=== PATIENT | male | born 1965 | race Caucasian/White ===

== ENCOUNTER 2016-08-30 14:50 | Emergency (ER) | payer OTHER ==
[~2016-08-30] VITALS: Ht 167.6 cm; Wt 84.8 kg
[~2016-08-30 14:50] MED LIST: ASPIRIN ADULT L81 MG PO; ASPIRIN CHILDRE81 MG; LISINOPRIL10 MG PO; METFORMIN1000 MG PO; SIMVASTATIN20 MG PO; ZOLPIDEM TARTRAT5 MG PO
--- NOTE | 2016-08-30 15:26 | ED GENERAL ADULT ---
History of Present Illness General Chief Complaint: ETOH/Drug Related Complaint Stated Complaint: DETOX AND VOMITING Source: patient, family, old records, EMS Exam Limitations: intoxication Vital Signs & Intake/Output Vital Signs & Intake/Output Vital Signs Date Time Temp Pulse Resp B/P Pulse O2 O2 Flow FiO2 Ox Delivery Rate 08/30 2201 98.2 80 16 136/74 / 2200 98.2 80 16 136/74 / 1915 98.4 90 16 134/80 04/ 1825 98.4 90 16 134/80 / 1708 Room Air 08/30 1455 97.1 98 18 121/89 100 Room Air Allergies Coded Allergies: NO KNOWN ALLERGIES (12/14/15) Reconcile Medications No Known Home Medications Triage Note: PT TO ED FOR ABD PAIN AND VOMITING SINCE SATURDAY, PT INTOXICATED IN TRIAGE, 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 Triage Nurses Notes Reviewed? yes HPI: Patient brought in by ambulance after his daughter called because of alcohol intoxication, abdominal pain and nausea or vomiting. Patient states that he has been vomiting for the past 2 days constantly. Patient is unable to keep anything except alcohol down. Patient and daughter deny any blood or coffee ground material in the vomitus. There are no fevers or chills. Patient cannot describe the pain nor localize the pain anywhere to his abdomen. Patient is intoxicated and is unable to provide further history. (ELIANE DICKERSON,KENNY Vazquez) Past History Travel History Traveled to [place] past 21 day No Medical History Any Pertinent Medical History? 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 No (ELIANE DICKERSON,KENNY Vazquez) Review of Systems Review of Systems Constitutional: Reports: no symptoms. EENTM: Reports: no symptoms. Respiratory: Reports: no symptoms. Cardiovascular: Reports: no symptoms. GI: Reports: see HPI, abdominal pain, nausea, vomiting. Genitourinary: Reports: no symptoms. Musculoskeletal: Reports: no symptoms. Skin: Reports: no symptoms. Neurological/Psychological: Reports: no symptoms. Hematologic/Endocrine: Reports: no symptoms. Immunologic/Allergic: Reports: no symptoms. All Other Systems: Reviewed and Negative (ELIANE DICKERSON,KENNY Vazquez) Physical Exam Physical Exam General Appearance: well developed/nourished, alert, awake, moderate distress Head: atraumatic, normal appearance Eyes: Bilateral: PERRL, EOMI. Ears, Nose, Throat: normal pharynx, normal ENT inspection Neck: normal inspection, supple, full range of motion Respiratory: normal breath sounds, chest non-tender, no respiratory distress, lungs clear Cardiovascular: regular rate/rhythm, normal peripheral pulses Gastrointestinal: normal bowel sounds, soft, non-tender, no organomegaly Back: normal inspection, normal range of motion Extremities: normal inspection, normal capillary refill, no edema Neurologic/Psych: no motor/sensory deficits, awake, alert Skin: intact, normal color, warm/dry Lymphatic: no anterior cervical audie Core Measures ACS in differential dx? No CVA/TIA Diagnosis: No Severe Sepsis Present: No Septic Shock Present: No (ELIANE DICKERSON,KENNY Vazquez) Progress Differential Diagnoses I considered the following diagnoses in my evaluation of the patient: [Alcohol intoxication, alcoholic gastritis, upper GI bleed, pancreatitis, dehydration] Plan of Care: Orders Procedure Date/time Status Regular Diet 08/31 B Active Continuous Observation Monitor 08/31 0700 Active Continuous Observation Monitor 08/31 0300 Active Continuous Observation Monitor 08/30 2300 Active CIWA 08/30 1906 Active Continuous Observation Monitor 08/30 1900 Active URINE DRUG SCREEN FOR ER ONLY 08/30 1655 Complete Continuous Observation Monitor 08/30 1612 Active Add-on Test (ER Only) 08/30 1525 Active LIPASE 08/30 1519 Complete ETHANOL 08/30 1519 Complete COMPREHENSIVE METABOLIC PANEL 08/30 1519 Complete CBC WITHOUT DIFFERENTIAL 08/30 1519 Complete AMYLASE 08/30 1519 Complete Laboratory Tests 08/30/16 1653: Urine Opiates Screen < 100.00, Methadone Screen < 40, Barbiturate Screen < 60, Ur Phencyclidine Scrn < 6.00, Amphetamines Screen < 100, U Benzodiazepines Scrn < 85, Urine Cocaine Screen < 50, Urine Cannabis Screen < 5.00 08/30/16 1626: Anion Gap 13, Estimated GFR > 60, BUN/Creatinine Ratio 23.8, Glucose 179 H, Calcium 9.1, Total Bilirubin 0.4, AST 29, ALT 41, Alkaline Phosphatase 85, Total Protein 7.2, Albumin 3.9, Globulin 3.3, Albumin/Globulin Ratio 1.2, Amylase 54, Lipase 119, Serum Alcohol 269.0 08/30/16 1555: CBC w Diff NO MAN DIFF REQ, RBC 5.44, MCV 89.7, MCH 30.9, RDW 12.6, MPV 7.7, Gran % 51.9, Lymphocytes % 40.5, Monocytes % 6.5, Eosinophils % 0.3, Basophils % 0.8, Absolute Granulocytes 4.6, Absolute Lymphocytes 3.6 H, Absolute Monocytes 0.6, Absolute Eosinophils 0, Absolute Basophils 0.1, PUBS MCHC 34.5 Initial ED EKG: none Hand-Off Endorsed To: HOSEA SHERIFF MD Endorsed Time: 1899 Pending: other (SOBREITY) (KENNY DEL RIO MD) Differential Diagnoses I considered the following diagnoses in my evaluation of the patient: Comments: Declines detox (HOSEA SHERIFF MD) Departure Departure Condition: Stable Referrals: GAB VALERIO MD (PCP/Family) (KENNY DEL RIO MD) Departure Time of Disposition: 2338 Disposition: HOME OR SELF CARE Clinical Impression Primary Impression: Alcohol intoxication Qualifiers: Complication of substance-induced condition: with delirium Qualified Code: F10.121 - Alcohol abuse with intoxication delirium Departure Forms: General Discharge Information Prescriptions: Current Visit Scripts No Known Home Medications (HOSEA SHERIFF MD) Critical Care Note Critical Care Note Critical Care Time: non-applicable (KENNY DEL RIO MD)
[2016-08-30 16:04] LABS: ABSOLUTE BASOPHIL COUNT 0.1 /CUMM (0.0-0.2); ABSOLUTE EOSINOPHIL COUNT 0 /CUMM (0.0-0.7); ABSOLUTE GRANULOCYTE CT 4.6 /CUMM (1.4-6.5); ABSOLUTE LYMPH COUNT 3.6 /CUMM (1.2-3.4); ABSOLUTE MONOCYTE COUNT 0.6 /CUMM (0.10-0.60); BASOPHIL % 0.8 % (0.0-2.0); EOSINOPHIL % 0.3 % (0-5); GRANULOCYTE % 51.9 % (42.2-75.2); HEMATOCRIT 48.8 % (42-52); MEAN CORPUSCULAR HGB 30.9 PG (27.0-31.0); MEAN CORPUSCULAR HGB CONC 34.5 G/DL (33.0-37.0); MEAN CORPUSCULAR VOLUME 89.7 FL (80.0-94.0); MEAN PLATELET VOLUME 7.7 FL (7.4-10.4); PLATELET COUNT 309 /CUMM (130-400); RBC DISTRIBUTION WIDTH 12.6 % (11.5-14.5); RED BLOOD CELL CT 5.44 /CUMM (4.70-6.10); WHITE BLOOD CELL COUNT 8.8 /CUMM (4.8-10.8)
[2016-08-30 22:02] VITALS: BP 136/74
== END 2016-08-30 23:46 ==
LOC: ERH 14:50
PROVIDERS: Emergency Medicine
DX: F10.129 Alcohol abuse with intoxication, unspecified (principal); R11.10 Vomiting, unspecified; I10 Essential (primary) hypertension; E11.9 Type 2 diabetes mellitus without complications; Z72.0 Tobacco use
CPT/HCPCS: 80307; 96372; G0480; J1200; J1630

== ENCOUNTER 2016-10-15 19:18 | Emergency (ER) | payer OTHER ==
--- NOTE | 2016-10-15 19:23 | ED GENERAL ADULT ---
History of Present Illness General Chief Complaint: ETOH/Drug Related Complaint Stated Complaint: REQUESTING ETOH DETOX Source: patient, family, old records Exam Limitations: intoxication Vital Signs & Intake/Output Vital Signs & Intake/Output Vital Signs Date Time Temp Pulse Resp B/P B/P Pulse O2 O2 Flow FiO2 Mean Ox Delivery Rate 10/15 Room Air Allergies Coded Allergies: NO KNOWN ALLERGIES (12/14/15) Reconcile Medications No Known Home Medications Triage Nurses Notes Reviewed? yes HPI: Patient brought in by his family for alcohol intoxication. His family wants to get detox but patient is adamantly refusing detox. Family is advised that we will be glad to help him if he is not to have helped. Patient denies any suicidal or homicidal ideations. Patient is refusing to stay for help. Patient wants to go home. Past History Travel History Traveled to [facility] past 21 day No Medical History Any Pertinent Medical History? 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 No Review of Systems Review of Systems Constitutional: Reports: no symptoms. Respiratory: Reports: no symptoms. Cardiovascular: Reports: no symptoms. GI: Reports: no symptoms. Musculoskeletal: Reports: no symptoms. Neurological/Psychological: Reports: no symptoms. Immunologic/Allergic: Reports: no symptoms. Physical Exam Physical Exam General Appearance: well developed/nourished, awake, intoxicated Head: atraumatic, normal appearance Eyes: Bilateral: PERRL, EOMI, other (SLUGGISH). Neck: normal inspection, supple Respiratory: normal breath sounds, chest non-tender, no respiratory distress, lungs clear Cardiovascular: regular rate/rhythm, normal peripheral pulses Gastrointestinal: normal bowel sounds, soft, non-tender, no organomegaly Neurologic/Psych: no motor/sensory deficits, awake, normal gait, normal mood/ affect Core Measures ACS in differential dx? No CVA/TIA Diagnosis: No Severe Sepsis Present: No Septic Shock Present: No Progress Differential Diagnoses I considered the following diagnoses in my evaluation of the patient: [Alcohol intoxication] Plan of Care: Orders Procedure Date/time Status CIWA 10/15 1922 Active Current Medications Sig/Ankita Start time Last Medication Dose Stop Time Status Admin Diphenhydramine HCl 50 MG ONCE ONE 10/15 1944 CAN (Benadryl) 10/15 1945 Haloperidol 5 MG ONCE ONE 10/15 1944 CAN (Haldol) 10/15 1945 Lorazepam 2 MG ONCE ONE 10/15 1944 CAN (Ativan) 10/15 1945 Laboratory Tests 10/15/161922: Serum Alcohol Cancelled 10/15/161922: CBC w Diff Cancelled, WBC Cancelled, RBC Cancelled, Hgb Cancelled, Hct Cancelled , MCV Cancelled, MCH Cancelled, RDW Cancelled, Plt Count Cancelled, MPV Cancelled, PUBS MCHC Cancelled, Methadone Screen Cancelled, Barbiturate Screen Cancelled, Ur Phencyclidine Scrn Cancelled, Amphetamines Screen Cancelled, U Benzodiazepines Scrn Cancelled, Urine Cocaine Screen Cancelled, Urine Cannabis Screen Cancelled, Urine Color Cancelled, Urine Clarity Cancelled, Urine pH Cancelled, Ur Specific [place] Cancelled, Urine Protein Cancelled, Urine Ketones Cancelled, Urine Nitrite Cancelled, Urine Bilirubin Cancelled, Urine Urobilinogen Cancelled, Ur Leukocyte Esterase Cancelled, Ur Microscopic Cancelled, Urine Hemoglobin Cancelled, Urine Glucose Cancelled Initial ED EKG: none Comments: The patient attempted to walk out of the emergency department. Patient was returned to his room. Patient again attempted to walk out. Patient was just about to be restrained and medicated with family state that they will need to just take him home since he does not want help at this time. Departure Departure Disposition: HOME OR SELF CARE Condition: Stable Clinical Impression Primary Impression: Alcohol intoxication Referrals: TEODORO DICKERSON,GAB Doe (PCP/Family) Departure Forms: Customer Survey General Discharge Information Prescriptions: Current Visit Scripts No Known Home Medications Critical Care Note Critical Care Note Critical Care Time: non-applicable
== END 2016-10-15 20:30 ==
LOC: ERH 19:18
DX: F10.129 Alcohol abuse with intoxication, unspecified (principal)
CPT/HCPCS: 80307; G0480

== ENCOUNTER 2018-01-31 16:42 | Inpatient (IN) | payer OTHER ==
[~2018-01-31] VITALS: Ht 167.6 cm; Wt 82.2 kg
--- NOTE | 2018-01-31 18:03 | ED PSYCHIATRIC COMPLAINT ---
History of Present Illness General Chief Complaint: Psychiatric Related Complaint Stated Complaint: +SI COMBATIVE Source: old records, EMS Exam Limitations: intoxication, language barrier Vital Signs & Intake/Output Vital Signs & Intake/Output Vital Signs Date Time Temp Pulse Resp B/P B/P Pulse O2 O2 Flow FiO2 Mean Ox Delivery Rate 09/08 1503 98.3 90 141/93 09/08 1423 97.7 83 20 144/101 97 09/08 1410 97.7 83 18 144/101 09/08 1310 98.4 72 18 128/94 98 09/08 1210 98.7 87 18 125/91 09/08 1115 98.7 87 18 125/91 99 09/08 1015 97.9 90 18 108/70 09/08 1014 97.9 90 18 108/70 98 Room Air 09/08 0810 98.7 88 18 116/79 09/08 0810 98.7 94 18 116/79 95 Room Air 09/08 0617 98.1 78 20 100/72 09/08 0614 98.1 78 20 100/72 96 Room Air 09/08 0504 97.5 09/08 0500 74 18 140/103 09/08 0500 74 18 140/103 96 Room Air 09/08 0300 97.9 87 16 120/89 09/08 0300 97.9 87 18 120/89 97 Nasal 2.0L Cannula 09/08 0100 98.0 79 18 134/98 09/08 0100 98.0 79 18 134/98 97 Nasal 2.0L Cannula 09/07 2300 97.5 86 20 125/90 09/07 2300 97.5 86 20 125/90 96 Nasal 2.0L Cannula /07 2247 84 20 190/87 96 Room Air 09/07 2130 98.0 102 18 180/96 09/07 2106 98.0 86 18 170/96 96 Room Air 09/07 1957 97.8 84 18 144/90 96 Room Air 09/07 1947 78 20 144/92 97 Room Air 09/07 1907 98.0 86 18 132/90 96 Room Air 09/07 1842 77 18 132/78 96 Room Air 09/07 1819 97.0 84 18 124/78 94 Room Air 09/07 1745 78 18 122/80 93 Room Air 09/07 1701 86 16 120/69 92 Room Air ED Intake and Output 09/08 0000 01/31 1200 Intake Total 330 Output Total 400 Balance -70 Intake, Oral 330 Output, Urine 400 Allergies Coded Allergies: NO KNOWN ALLERGIES (12/14/15) Reconcile Medications No Known Home Medications Triage Note: PER EMS REPORT PT WAS FOUND INTOXICATED AT HOME BY HIS DAUGHTER. PT WAS AGITATED AND THREATENING TO KILL HIMSELF WITH A KITCHEN KNIFE. PER EMS PT ALSO TOOK AN UNKNOWN AMOUNT OF AMBIEN. PT WAS AGITATED FOR EMS AND WAS ATTEMPTING TO EXPOSE HIMSELF IN THE AMBULANCE. ON ARRIVAL PT IS DROWSY BUT AROUSABLE TO VERBAL AND TACTILE STIMULI. SECURITY AT BEDSIDE. PT PLACED ON CARDIC MONITOR AND SPO2 MONITORING. Triage Nurses Notes Reviewed? yes Onset: Abrupt Duration: day(s): (1), constant, continues in ED, getting worse Timing: recent history Severity: moderate, severe Associated Symptoms: anxiety, ingestion, suicidal ideation HPI: 52-year-old male history of hypertension diabetes alcohol intoxication brought in by ambulance on a police paper for evaluation of alcohol and tox patient and suicidal ideation. Patient is now feeling intoxicated. He is largely Czech speaking history is limited. According to the police paper patient had drank heavily today and took 4 10 mg Ambien tablets. He had threatened to kill himself with a kitchen knife or try to hang himself. Patient has been seen with similar symptoms in the past. Patient is unable to answer any questions secondary to intoxication and clinical condition. (Marcellus Dorado) Past History Travel History Traveled to [place] past 21 day No Medical History Any Pertinent Medical History? 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 No (Marcellus Dorado) Review of Systems Review of Systems Constitutional: Reports: no symptoms. EENTM: Reports: no symptoms. Respiratory: Reports: no symptoms. Cardiovascular: Reports: no symptoms. GI: Reports: no symptoms. Genitourinary: Reports: no symptoms. Musculoskeletal: Reports: no symptoms. Skin: Reports: no symptoms. Neurological/Psychological: Reports: see HPI, anxiety, depressed. Hematologic/Endocrine: Reports: no symptoms. Immunologic/Allergic: Reports: no symptoms. All Other Systems: Reviewed and Negative (Marcellus Dorado) Physical Exam Physical Exam General Appearance: well developed/nourished, alert, awake, anxious, lethargic, moderate distress, intoxicated Head: atraumatic, normal appearance Eyes: Bilateral: normal appearance, PERRL (sluggish), EOMI. Ears, Nose, Throat: normal pharynx, normal ENT inspection, hearing grossly normal Neck: normal inspection, supple, full range of motion Respiratory: normal breath sounds, chest non-tender, no respiratory distress, lungs clear Cardiovascular: regular rate/rhythm, normal peripheral pulses Gastrointestinal: soft, non-tender Extremities: normal range of motion Neurological/Psychiatric: no motor/sensory deficits, awake, agitated, anxious Appearance/Memory/Insight: disheveled, impaired insight Behavoir/Eye Contact/Speech: belligerent, uncooperative, compulsive, refused to answer, threatening eye contact Thoughts/Hallucinations: incoherent Skin: intact, normal color, warm/dry Comments: Patient is intoxicated and belligerent. He is refusing answer questions. He is threatening staff attempting to leave. Kicking siderails he is a danger to himself and others. SAD PERSONS SAD PERSONS Response Value Male Sex? yes 1 Age <19 or >45 years? yes 1 Depression/Hopelessness? yes 2 Previous Attempts/Psych Care yes 1 Excessive Ethanol/Drug Use? yes 1 Rational Thinking Loss? yes 2 Organized/Serious Attempt yes 2 Social Support? has support 0 Total 10 SAD PERSONS Done? yes (Marcellus Dorado) Progress Differential Diagnosis: dementia, drug intoxication, drug overdose, drug withdrawal, electrolyte abnormality Plan of Care: Orders Procedure Date/time Status Consistent Carbohydrate 3 02/01 D Active Regular Diet 02/01 B Complete Continuous Observation Monitor 02/01 1900 Complete Vital Signs 02/01 1503 Complete Inpt Psych Teach/Educate 02/01 1503 Active Nutritional Intake, Monitor 02/01 1503 Active Inpt Psych Auricular Acupunctu 02/01 1503 Active Continuous Observation Monitor 02/01 1500 Complete Lab Add-on Test 02/01 1216 Active Pathway - chart 02/01 1215 Active Lab Add-on Test 02/01 1210 Active Patient Data - inpatient psych 02/01 1209 Active Admit to inpatient psych 02/01 1209 Active Admit to inpatient psych 02/01 1147 Active Continuous Observation Monitor 02/01 1100 Complete Continuous Observation Monitor 02/01 0700 Complete Restraint- Discontinue 02/01 0430 Active Restraint- Behavioral (Renew) 02/01 0338 Active Vital Signs 02/01 UNK Active Nursing Misc 02/01 UNK Active CIWA 02/01 UNK Complete Alternative Nursing Therapy 02/01 UNK Active Activity/Ambulation 02/01 UNK Complete Restraint- Behavioral (Renew) 01/31 2340 Active Restraint- Behavioral (Renew) 01/31 2309 Active Bayard Coma Scale 01/31 2133 Complete Straight Cath 01/31 2045 Complete CIWA 01/31 2013 Active Restraint- Behavioral (Renew) 02/01 2000 Active Intake & Output 01/31 1816 Complete TSH REFLEX 01/31 1720 Complete LIPID PANEL 01/31 1720 Complete GLYCOSYLATED HGB 01/31 1720 Complete DIRECT LDL 01/31 1720 Complete Restraint- Behavioral (Order) 01/31 1705 Complete ACETOMINOPHEN 01/31 1704 Complete TROPONIN LEVEL 01/31 1704 Complete SALICYLATE 01/31 1704 Complete EKG 01/31 1704 Active Continuous Observation Monitor 01/31 1658 Complete URINE DRUG SCREEN FOR ER ONLY 01/31 1658 Complete URINALYSIS 01/31 1658 Complete ETHANOL 01/31 1658 Complete COMPREHENSIVE METABOLIC PANEL 01/31 1658 Complete CBC WITHOUT DIFFERENTIAL 01/31 1658 Complete ED CRISIS PSYCH CONSULT 01/31 1658 Active Current Medications Sig/Ankita Start time Last Medication Dose Stop Time Status Admin Lorazepam 0.5 MG ONCE 02/06 0000 AC (Ativan) 02/06 0001 Lorazepam 0.5 MG Q6H 02/05 0000 AC (Ativan) 02/05 180 Lorazepam 0.5 MG ONCE ONE 02/04 1800 AC (Ativan) 02/04 1801 Lorazepam 1 MG Q6H 02/04 0000 AC (Ativan) 02/04 1201 Lorazepam 1.5 MG Q12H 02/03 0600 AC (Ativan) 02/03 1801 Lorazepam 1 MG Q12H 02/03 0000 AC (Ativan) 02/03 1201 Lorazepam 1.5 MG Q6 02/02 0600 AC (Ativan) 02/02 1801 Acetaminophen 650 MG Q6P PRN 02/01 1215 AC (Tylenol) Al Hydroxide/Mg 30 ML Q4-6 PRN PRN 02/01 1215 AC Hydroxide (Maalox Plus) Benztropine Mesylate 1 MG Q6P PRN 02/01 1215 AC (Cogentin 1 MG Tablet) Benztropine Mesylate 1 MG Q6P PRN 02/01 1215 AC (Cogentin) Gabapentin 300 MG Q6P PRN 02/01 1215 AC (Neurontin) Haloperidol 5 MG Q6P PRN 02/01 1215 AC (Haldol) Haloperidol 5 MG Q6P PRN 02/01 1215 AC (Haldol) Lorazepam 2 MG Q6P PRN 02/01 1215 AC (Ativan) Lorazepam 2 MG Q6 02/01 1215 AC (Ativan) 02/02 0001 Lorazepam 2 MG Q2P PRN 02/01 1215 AC (Ativan) Lorazepam 1 MG Q2P PRN 02/01 1215 AC (Ativan) Magnesium Hydroxide 30 ML AT BEDTIME PRN 02/01 1215 AC (Milk Of Magnesia) Nicotine 2 MG Q2P PRN 02/01 1215 AC (Nicotine) Trazodone HCl 50 MG AT BEDTIME NEED.. 02/01 1215 AC (Desyrel) Folic Acid 1 MG DAILY 02/01 1214 AC (Folic Acid) 02/03 901 Multivitamins 1 TAB DAILY 02/01 1214 AC (Theragran Vitamins) Thiamine HCl 100 MG DAILY 02/01 1214 AC (Vitamin B1) 02/03 09 Laboratory Tests 01/31/180: Urine Opiates Screen < 100, Methadone Screen 43, Barbiturate Screen < 60, Ur Phencyclidine Scrn < 6.00, Amphetamines Screen < 100, U Benzodiazepines Scrn < 85, Urine Cocaine Screen < 50, Urine Cannabis Screen < 5.00, Urine Color STRAW, Urine Clarity CLEAR, Urine pH 6.0, Ur Specific [place] 1.010, Urine Protein NEG, Urine Ketones NEG, Urine Nitrite NEG, Urine Bilirubin NEG, Urine Urobilinogen 0.2, Ur Leukocyte Esterase NEG, Ur Microscopic EXAM NOT REQUIRED, Urine Hemoglobin NEG, Urine Glucose >=1000 H 01/31/18 1720: Troponin I < 0.01, Serum Alcohol 226.0 01/31/18 1720: Anion Gap 15, Estimated GFR > 60, BUN/Creatinine Ratio 21.7, Glucose 289 H, Hemoglobin A1c 9.7 H, Calcium 9.7, Total Bilirubin 0.5, AST 26, ALT 33, Alkaline Phosphatase 94, Total Protein 7.6, Albumin 4.4, Globulin 3.2, Albumin/ Globulin Ratio 1.4, Triglycerides 521 H, Cholesterol 212 H, LDL Cholesterol Direct 91.28, LDL Cholesterol, Calc ND, HDL Cholesterol 50, Cholesterol/HDL Ratio 4.2, TSH &T3 &Free T4 Intrp 2.000, CBC w Diff NO MAN DIFF REQ, RBC 5.53, MCV 88.6, MCH 30.6, MCHC 34.5, RDW 12.9, MPV 7.5, Gran % 52.8, Lymphocytes % 37.2, Monocytes % 8.7, Eosinophils % 0.8, Basophils % 0.5, Absolute Granulocytes 4.3, Absolute Lymphocytes 3.0, Absolute Monocytes 0.7 H, Absolute Eosinophils 0.1, Absolute Basophils 0, Salicylates < 1.0, Acetaminophen < 10.0 L Patient arrives heavily intoxicated on a police paper for suicidal ideation. He drank a large amount of alcohol and took 4 mgram Ambien tablets. He threatened to kill himself with a knife or hang himself. Patient is a danger to himself and others currently. He is belligerent and intoxicated he is threatening staff. He is attempting to leave attempting to get out of bed. Patient is placed in 4 point restraints he was medicated with Haldol Benadryl Ativan. Patient continues to be very aggressive and agitated. He is in restraints but is still kicking and thrashing. He was given another 2 mg of IV Ativan. Patient is now resting comfortably after several hours. His vital signs are stable. Blood work is unremarkable. Does have an elevated alcohol level is 300. Patient will be held over in the emergency department for crisis evaluation. 2 of his 4 restraints were removed. We'll continue to monitor. Patient signout to Dr. Pineda pending crisis Diagnostic Imaging: Viewed by Me: Radiology Read. Discussed w/RAD: Radiology Read. CXR Impression: PATIENT: LANCE LYLES PRESENT AGE : 52 PATIENT ACCOUNT NO: [id number] : 65 LOCATION: [facility] ORDERING PHYSICIAN: Marcellus COLE SERVICE DATE: 01/31/18 EXAM TYPE: RAD - XRY- PORTABLE CHEST XRAY EXAMINATION: XR PORTABLE CHEST CLINICAL INFORMATION: Hypoxia. COMPARISON: 12/13/2014 TECHNIQUE: Portable frontal view of the chest was obtained. FINDINGS: No significant abnormality is noted involving the heart, lungs, mediastinum, bony thorax or soft tissues. IMPRESSION: Limited extra chest. Minimal bibasilar airspace disease likely minor atelectasis. Minimal early infiltrate not excluded. Consider follow-up PA and lateral chest with better inspiratory effort. DICTATED BY: Jose Briseno MD DATE/TIME DICTATED:1818 SEAL EXTRUSION OPERATOR:DEEPIKA DATE/TIME TRANSCRIBED:01/31/181818 CONFIDENTIAL, DO NOT COPY WITHOUT APPROPRIATE AUTHORIZATION. Initial ED EKG: normal sinus rhythm, QTC 441, sinus rhythm [facility] Hand-Off Endorsed To: Macario Pineda MD Endorsed Time: 99 Pending: other (crisis) (Marcellus Dorado) Departure Departure Disposition: STILL A PATIENT Condition: Stable Clinical Impression Primary Impression: Suicidal ideation Secondary Impressions: Alcohol intoxication delirium Referrals: Imelda DICKERSON,Jagdeep Doe (PCP/Family) Departure Forms: Customer Survey General Discharge Information Prescriptions: Current Visit Scripts No Known Home Medications (Marcellus Dorado) Departure Comments pt signed out to dr. martinez, 02/01/18, 7am. PA/ENTRY DRIVER OPERATOR Co-Sign Statement Statement: ED Attending supervision documentation- [x] I saw and evaluated the patient. I have also reviewed all the pertinent lab results and diagnostic results. I agree with the findings and the plan of care as documented in the PA's/ENTRY DRIVER OPERATOR's documentation. [] I have reviewed the ED Record and agree with the PA's/ENTRY DRIVER OPERATOR's documentation. [] Additions or exceptions (if any) to the PAs/ENTRY DRIVER OPERATOR's note and plan are summarized below: [] (Miriam DICKERSON,Macario Gustafson) Psych Admission Note Psychiatric Admission: I have seen and evaluated LANCE LYLES. I have also reviewed all the pertinent lab results and diagnostic results. LANCE LYLES will be admitted to our inpatient Psychiatric unit for treatment and care. (Charlie DICKERSON,Brayan)
[2018-01-31 18:07] LABS: ABSOLUTE BASOPHIL COUNT 0 /CUMM (0.0-0.2); ABSOLUTE EOSINOPHIL COUNT 0.1 /CUMM (0.0-0.7); ABSOLUTE GRANULOCYTE CT 4.3 /CUMM (1.4-6.5); ABSOLUTE MONOCYTE COUNT 0.7 /CUMM (0.10-0.60); BASOPHIL % 0.5 % (0.0-2.0); EOSINOPHIL % 0.8 % (0-5); GRANULOCYTE % 52.8 % (42.2-75.2); MEAN CORPUSCULAR HGB 30.6 PG (27.0-31.0); MEAN CORPUSCULAR HGB CONC 34.5 G/DL (33.0-37.0); MEAN CORPUSCULAR VOLUME 88.6 FL (80.0-94.0); MEAN PLATELET VOLUME 7.5 FL (7.4-10.4); PLATELET COUNT 307 /CUMM (130-400); RBC DISTRIBUTION WIDTH 12.9 % (11.5-14.5); RED BLOOD CELL CT 5.53 /CUMM (4.70-6.10); WHITE BLOOD CELL COUNT 8.1 /CUMM (4.8-10.8)
--- NOTE | 2018-01-31 18:23 | RADIOLOGY REPORT ---
EXAMINATION: XR PORTABLE CHEST CLINICAL INFORMATION: Hypoxia. COMPARISON: 12/13/2014 TECHNIQUE: Portable frontal view of the chest was obtained. FINDINGS: No significant abnormality is noted involving the heart, lungs, mediastinum, bony thorax or soft tissues. IMPRESSION: Limited extra chest. Minimal bibasilar airspace disease likely minor atelectasis. Minimal early infiltrate not excluded. Consider follow-up PA and lateral chest with better inspiratory effort.
[2018-01-31 21:30] VITALS: BP 180/96
[2018-01-31 23:00] VITALS: BP 125/90
[2018-02-01] VITALS (12 sets, daily range): BP systolic 100–144; BP diastolic 70–103
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
[2018-02-01] MEDS ORDERED: GLUCOPHAGE1000 M1 PO (17:47)
[2018-02-01] MEDS ORDERED: AMBIEN10 M1 PO (17:50)
--- NOTE | 2018-02-01 20:31 | History & Physical ---
General Information and HPI MD Statement: I have seen and personally examined LANCE LYLES and documented this H&P. The patient is a 52 year old M who presented with a patient stated chief complaint of depression and expressing of "kill myself". Source of Information: patient Exam Limitations: no limitations History of Present Illness: Patient is a 52 years old male with history of hypertension, diabetes is admitted to inpatient psychiatry for depression, suicidal ideation. Patient says that he was upset with the family issues, was tired and was feeling somewhat depressed, expressed that "maybe I should kill myself", his daughter called the EMS. Patient says that he was taking metformin in the past but not taking for a long time. Does not check sugars at home. Mrs. he has mild blood pressure problem but not on any medications. He has not seen his PCP for more than 2-1/2 years. Patient also drinks alcohol, he was sober for 8 weeks then he started drinking for a week then he was sober for 1 week and again he started drinking 3 days ago. He drinks beer. Denies any withdrawal symptoms. 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 spouse Services at Home: None Smoking Status: Never Smoked ETOH Use: alcoholic Functional Ability ADLs Independent: dressing, eating, toileting, bathing. Ambulation: independent IADLs Independent: shopping, housework, finances, food prep, telephone, transportation , medication admin. Review of Systems Review of Systems Constitutional: Denies: no symptoms. EENTM: Denies: no symptoms. Cardiovascular: Denies: chest pain, orthopena, palpitations. Respiratory: Denies: no symptoms, cough. GI: Denies: no symptoms. Genitourinary: Denies: no symptoms. Musculoskeletal: Denies: no symptoms. Skin: Denies: no symptoms. Neurological/Psychological: Denies: no symptoms. Hematologic/Endocrine: Denies: no symptoms. Exam & Diagnostic Data Last 24 Hrs of Vital Signs/I&O Vital Signs Date Time Temp Pulse Resp B/P B/P Pulse O2 O2 Flow FiO2 Mean Ox Delivery Rate 02/01 2001 98.9 92 125/92 /08 1952 98.9 92 125/92 /08 1503 98.3 90 141/93 09/08 1423 97.7 83 20 144/101 97 09/08 1410 97.7 83 18 144/101 09/08 1310 98.4 72 18 128/94 98 09/08 1210 98.7 87 18 125/91 09/08 1115 98.7 87 18 125/91 99 09/08 1015 97.9 90 18 108/70 09/08 1014 97.9 90 18 108/70 98 Room Air 09/08 0810 98.7 88 18 116/79 09/08 0810 98.7 94 18 116/79 95 Room Air 09/08 0617 98.1 78 20 100/72 09/08 0614 98.1 78 20 100/72 96 Room Air 09/08 0504 97.5 09/08 0500 74 18 140/103 09/08 0500 74 18 140/103 96 Room Air 09/08 0300 97.9 87 16 120/89 09/08 0300 97.9 87 18 120/89 97 Nasal 2.0L Cannula 09/08 0100 98.0 79 18 134/98 09/08 0100 98.0 79 18 134/98 97 Nasal 2.0L Cannula /07 2300 97.5 86 20 125/90 /07 2300 97.5 86 20 125/90 96 Nasal 2.0L Cannula / 2247 84 20 190/87 96 Room Air / 2130 98.0 102 18 180/96 /07 2106 98.0 86 18 170/96 96 Room Air Intake & Output 02/01 1600 08 0800 09/08 0000 Intake Total 330 Output Total 500 400 Balance -500 -70 Intake, Oral 330 Output, Urine 500 400 Patient 181 lb Weight Physical Exam General Appearance Alert, Oriented X3 Skin No Rashes HEENT Atraumatic, PERRLA, EOMI Neck Supple, No JVD Lymphatic Axillary nl, Cervical nl Cardiovascular Regular Rate, Normal S1, Normal S2 Lungs Clear to Auscultation, Normal Air Movement Abdomen Normal Bowel Sounds, Soft, No Tenderness, No Hepatospenomegaly Neurological Exam Findings: Normal Gait, Normal Speech, Strength at 5/5 X4 Ext, Normal Tone, Sensation Intact, Cranial Nerves 3-12 NL Cranial Nerves II through XII: intact Extremities No Edema, Normal Pulses Last 24 Hrs of Labs/Arsh: Laboratory Tests 01/31/182049: Urine Opiates Screen < 100, Methadone Screen 43, Barbiturate Screen < 60, Ur Phencyclidine Scrn < 6.00, Amphetamines Screen < 100, U Benzodiazepines Scrn < 85, Urine Cocaine Screen < 50, Urine Cannabis Screen < 5.00, Urine Color STRAW, Urine Clarity CLEAR, Urine pH 6.0, Ur Specific [place] 1.010, Urine Protein NEG, Urine Ketones NEG, Urine Nitrite NEG, Urine Bilirubin NEG, Urine Urobilinogen 0.2, Ur Leukocyte Esterase NEG, Ur Microscopic EXAM NOT REQUIRED, Urine Hemoglobin NEG, Urine Glucose >=1000 H Assessment/Plan Assessment: Assessment and plan: #Fashion, alcohol use disorder-psychiatry team. #Diabetes type 2-resumed metformin twice daily. Also started on sliding scale insulin, monitoring Accu-Cheks. A1c is 9.7. Patient likely needs sulfonylureas along with metformin on discharge. Medical team can follow-up. #Hypertension-not on medications at home. Currently blood pressure is acceptable. #High cholesterol and triglycerides-this is due to uncontrolled sugars. Can repeat lipids when sugars are better controlled. #Low risk for DVT, ambulation is encouraged. Dr.Ravinder Sanchez MD. Hospitalist. Pager: [phone], cell: [phone]. As Ranked By This Provider Problem List: 1. Diabetes 2. Hypertension 3. Suicidal ideation 4. Alcohol abuse Miscellaneous Miscellaneous Documentation Attending Case Discussed With: Nyasia DICKERSON,Macario Primary Care Physician: Imelda DICKERSON,Jagdeep Doe Patient sees these Specialists no Level of Patient Care: MANISHA Neumann
[2018-02-02] VITALS (7 sets, daily range): BP systolic 114–149; BP diastolic 84–97
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
[2018-02-03] VITALS (8 sets, daily range): BP systolic 118–153; BP diastolic 60–96
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
--- NOTE | 2018-02-03 16:15 | SOCIAL WORKER PROG NOTE PSYCH ---
Social Work Progress Note Progress Note This insurance underwriter met with patient. He presented a probable cause hearing request to the nurse. Patient stated that he believed that doing so would allow him to discharge today. Upon discussing with this insurance underwriter, patient stated that he wanted to cancel the request. We discussed treatment options to engage in following discharge from this hospital, to which he was in agreement with IOP. He was also agreeable to a family meeting with his daughter, Allison Villatoro. Patient stated that he also planned to call his clerk checker has he received a DUI on 01/28/18. At patient's request, he signed an SHIRLEY for both his clerk checker (Pieter Audrey and his daughter). Patient was unable to identify any pattern for his alcohol use, however, stated that he last drank daily for the four days prior to this admission, 6-7 Indonesian beers ("1/2 liters"). He denied feeling depressed and denied SI/HI/ hallucinations. 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 Patient stated that he will contact his clerk checker and will provide him with this insurance underwriter's phone number. This insurance underwriter spoke with patient's daughter, Allison ([phone]) by phone and scheduled a family meeting for 02/04/18 at 1pm.
[2018-02-04] VITALS (7 sets, daily range): BP systolic 127–150; BP diastolic 69–85
--- NOTE | 2018-02-04 16:44 | SOCIAL WORKER PROG NOTE PSYCH ---
Social Work Progress Note Progress Note This hand sign writer met with the patient and his daughter, Allison. Allison expressed concerns about the patient's alcohol use as well as SI. She stated, "I'm worried he will kill himself." Patient is adamant about the rope that was found prior to admission by the pool at his home, stating that it was not related to SI and only for his pool. Allison stated that his boss informed her that he had called him in tears and when Allison came to the house she found the rope. She also mentioned that he had talked about a will and testament. Patient continued to deny any SI and stated that he made a comment once while under the influence that "maybe it would be better if I wasn't around." Again, he denied any suicidal thoughts and stated that he was not saying this seriously. Allison also expressed concerns about the patient living alone. Patient would like someone to do dishes, cleaning and laundry, which Allison stated that her mother tended to when her parents were still . Allison is not able to stay with him temporarily nor is he able to stay with her. The patient did not have anyone that he could stay with. Patient stated that he would like a referral to an IOP in [place] - close to work, which would be [facility]. He also plans to go to . He refused rehab. He has court on 02/13/18 and may lose his license for 45 days. He agreed to contact his boss to inquire about assistance with transportation should he lose his license and require someone to drive him to the IOP. Patient was informed that he could inform me/staff should he change his mind prior to discharge and wish to have a rehab referral. He was also informed that he could also explore rehab programs at a later date should he choose not to before discharge. Patient denied any access to guns/firearms, which his daughter confirmed as well. This hand sign writer informed Dr. Weiner of this family meeting.
--- NOTE | 2018-02-04 17:31 | SOCIAL WORKER PROG NOTE PSYCH ---
Social Work Progress Note Progress Note This instructional writer left with clinical for Soraya Doe ([phone], ext. [phone]) requesting ongoing authorization for inpatient stay. A call back number was included.
[2018-02-05 06:30] VITALS: BP 124/81
--- NOTE | 2018-02-05 12:33 | CP SOUTH PROGRESS NOTE PSYCH ---
Psych (Inpt) Progress Note Progress Note Include the following elements, when applicable: Involvement in the active treatment of the patient with behavioral observations of the patient and the patient's response to the treatment. Review of the ongoing treatment process in the context of the treatment plan. Indication of how multi-disciplinary staff members are carrying out the treatment plan. Plans for future interventions and recommendations for revision of the treatment plan. Liaison with other physicians/providers. Progress Note: Inpatient progress note PROGRESS NOTE/TREATMENT REVIEW TREATMENT TEAM Reviewed by Treatment Team, following member present: nurse, child protective services social worker, faculty physician, pt focused on leaving. Subjective Assessment/Chief Complaint/Interval History/ROS Pt is wholly focused on leaving. After some discussion about his assisted etoh use and relationship with his daughter he was more open to family meeting and going to seek treatment at rehab. denies mood is a problem but has good insight that etoh is a real problem. Psychiatric: anxiety: Gastrointestinal: diarrhea, cramping VITAL SIGNS/RESULTS stable SCHEDULED MEDICATIONS @RRSCHMED@ Current Medications Sig/Ankita Start time Last Medication Dose Route Stop Time Status Admin Acetaminophen 650 MG Q6P PRN 02/01 1215 AC 02/05 PO 1915 Al Hydroxide/Mg 30 ML Q4-6 PRN PRN 02/01 1215 AC Hydroxide PO Artificial Tears 1 GTT Q4P PRN 02/05 1545 AC OU Benztropine Mesylate 1 MG Q6P PRN 02/01 1215 AC PO Benztropine Mesylate 1 MG Q6P PRN 02/01 1215 AC IM Dicyclomine HCl 20 MG Q6P PRN 02/04 1447 AC 02/04 PO 2029 Disulfiram 500 MG DAILY 02/05 1029 AC 02/05 PO 1137 Gabapentin 300 MG Q6P PRN 02/01 1215 AC PO Haloperidol 5 MG Q6P PRN 02/01 1215 AC PO Haloperidol 5 MG Q6P PRN 02/01 1215 AC IM Insulin Aspart 0 TIDAC 02/02 0800 AC 02/05 SC 1218 Loperamide HCl 2 MG Q6P PRN 02/04 1447 AC 02/04 PO 1641 Lorazepam 0.5 MG ONCE 02/06 0000 DC PO 02/06 0001 Lorazepam 0.5 MG Q6H 02/05 0000 DC 02/05 PO 02/05 1801 1731 Lorazepam 2 MG Q6P PRN 02/01 1215 AC IM Lorazepam 2 MG Q2P PRN 02/01 1215 AC PO Lorazepam 1 MG Q2P PRN 02/01 1215 AC PO Magnesium Hydroxide 30 ML AT BEDTIME PRN 02/01 1215 AC PO Metformin HCl 850 MG 0800,1700 02/02 0800 AC 02/05 PO 1728 Multivitamins 1 TAB DAILY 02/01 1214 AC 02/04 PO 0909 Nicotine 2 MG Q2P PRN 02/01 1215 AC PO Trazodone HCl 100 MG AT BEDTIME 02/05 2100 AC 02/05 PO 2217 Trazodone HCl 50 MG AT BEDTIME NEED.. 02/01 1215 DC 02/04 PO 2223 PHYSICAL AND MENTAL STATUS EXAM Musculoskeletal: gait normal no termor Constitutional:no acute distress Attention/concentration: fair Orientation: intact Mood:euthymic but anxious to go Affect: anxious edgy Motor Activity:wnl Speech: accent, clear, normal rate volume Thought Process: linear, perseverative about leaving Associations:intact Suicidal Ideation: Denies despite daughters protest and fear Homicidal Ideation:denies Delusions:no Hallucination: no Insight/Judgment: poor Memory: Intact, remote, working Language: Naming objects intact Fund of knowledge: awareness of current events DIAGNOSIS Evidence supports a principle diagnosis of: AUD r/o substance induced MDD r/o MDD r/o anx unspec Extended Problem List: Daughter feels pt wants to kill himself severe etoh use d/o DUI recently Treatment Plan Update/Medical Decision Making The multidisciplinary treatment team continues to implement the following: Motivatinal interviewing Collateral from daughter monitoring mood for diagnostic clarity now that pt is newly sober Psychiatric status The patients admission and precautionary status, medication administration, and safety since last assessment have been reviewed. Social work continuing to coordinate care and discharge planning and collateral information has been reviewed. Continued Stay Criteria (select all that apply) Collateral that pt had a rope and was going to hang himself low insight guarding Psychiatric decision making is as follows: will continue to monitor and discuss with daughter Psychotropic medication recommendations, with informed consent obtained from the patient/guardian: Does not want medications Medical status Continue monitoring vital signs, current DVT prophylaxis, and diet Laboratory studies, radiology results, ECG, or other information reviewed and discussed with patient and plan to address comorbid medical conditions as follows: Dm diarrhea Substance use disorder Nicotine replacement treatment as indicated I re-certify that this inpatient psychiatric hospital admission is medically necessary for diagnostic study and/or active treatment, which could reasonably be expected to improve the patient's condition.
[2018-02-05 12:52] VITALS: BP 154/81
--- NOTE | 2018-02-05 15:02 | CP SOUTH PROGRESS NOTE PSYCH ---
Psych (Inpt) Progress Note Progress Note Include the following elements, when applicable: Involvement in the active treatment of the patient with behavioral observations of the patient and the patient's response to the treatment. Review of the ongoing treatment process in the context of the treatment plan. Indication of how multi-disciplinary staff members are carrying out the treatment plan. Plans for future interventions and recommendations for revision of the treatment plan. Liaison with other physicians/providers. Progress Note: Case and treatment plan discussed in team meeting. Staff reports that the patient refused VS and blood sugar check this morning. Described as rude to staff last evening about attending AA meeting. Family meeting was held with daughter yesterday. Patient seen at 9:59 a.m. Reports he feels very good now. He is eager for discharge. Reports he needs to get a director business management for his DUI case. He is worried about accumulating garaging fees for his vehicle. Reports he is late on his bills. He would like to go on Antabuse. Major risks and benefits of Antabuse were discussed with the patient, including risks of liver irritation and risk of becoming very seriously ill or dying if he drinks while on Antabuse. He was advised to avoid exposure to all alcohol-containing products while he is on this medication. He agrees to this medication. Affect is calm and euthymic. Mood is good. Reports he had loose stools and I see that Bentyl and Imodium were ordered prn. Loose stools have resolved. Rates sad mood 3/10 and anxiety 0/10. Denies feeling hopeless, helpless or worthless. Feels guilty for drinking. Denies active and passive suicidal ideation. Denies homicidal ideation. Denies auditory and visual hallucinations and paranoid ideation. Reports sleep was not good. He agrees to change trazodone dose to 100 mg nightly standing. Describes appetite and energy as good. Refuses offer for an antidepressant. IMPRESSION: Slow progress. Continue present treatment plan. Anticipate likely discharge tomorrow with referral to an IOP.
[2018-02-05 16:15] VITALS: BP 126/82
--- NOTE | 2018-02-05 18:21 | SOCIAL WORKER PROG NOTE PSYCH ---
See Addendum Social Work Progress Note Progress Note This advertising writer met with patient. He shared that he was "very happy" about being discharged tomorrow and had a positive meeting with Dr. Murrell. He denied SI/HI/ hallucinations and would like a referral to IOP. Patient acknowledged that he had originally requested an IOP in [place], but would prefer to remain with . He stated that he has court on 02/13/18 and, if his license is suspended, he will obtain transportation by a family member. He stated that he may also inquire about obtaining a permit that will allow him to drive to work and treatment. Patient is agreeable to a meeting with his boss and friend, Brandon ([phone]). A phone meeting has been scheduled for 02/06/18 at 10:30am. This advertising writer received a call from the patient's daughter, Allison, at 3:30pm. She inquired about his discharge date and was informed that we anticipate that he will discharge tomorrow. She was also informed that we will have a phone meeting with the patient and his boss, Brandon. Upon her inquiry, Allison was also informed that the patient has been prescribed Antabuse. Patient was informed of this call. An IOP intake with has been scheduled for 02/07/18 at 11:30am. Patient was informed that it would cost $55 per day until he meets his deductible. Patient stated that he would like to attend the IOP despite the cost.
[2018-02-05 19:52] VITALS: BP 127/78
[2018-02-05 19:55] VITALS: BP 127/78
[2018-02-06 08:22] VITALS: BP 141/75
[2018-02-06] MEDS ORDERED: LOPERAMIDE2 M2 PO (10:37)
[2018-02-06] MEDS ORDERED: METFORMIN HCL850 M1 PO (10:37)
[2018-02-06] MEDS ORDERED: TRAZODONE HCL100 M1 PO (10:37)
[2018-02-06] MEDS ORDERED: DISULFIRAM250 M1 PO (10:37)
[2018-02-06] MEDS ORDERED: NICORELIEF2 MG PO (10:37)
[2018-02-06] MEDS ORDERED: DICYCLOMINE HCL20 M1 PO (10:37)
[2018-02-06] MEDS ORDERED: ONE DAILY MULT1 EAC2 PO (10:37)
[2018-02-06] MEDS ORDERED: ARTIFICIAL TEA1 EACH OU (10:37)
--- NOTE | 2018-02-06 10:49 | Patient Discharge Instructions ---
Psych Discharge Inst General Discharge Information Reason for Admission: Made suicidal comments. Ingested 2-4 Ambien. Had rope on floor. Patient was intoxicated. Denied intent to use rope for suicide. Psy Discharge Primary Diag+ Unspecified depression Psy Discharge Secondary Diag+ Alcohol use disorder Diabetes mellitus type 2 Hyperlipidemia Hx hypertension Summary Tests/Major Procedures Lab ALT 33 U/L 01/31/18 1720 AST 26 U/L 01/31/18 1720 BUN 13 mg/dL 01/31/18 1720 Carbon Dioxide 24 mmol/L 01/31/18 1720 Chloride 102 mmol/L 01/31/18 1720 Cholesterol 212 MG/DL H 01/31/18 1720 Cholesterol/HDL Ratio 4.2 % 01/31/18 1720 Creatinine 0.6 mg/dL L 01/31/18 1720 Glucose 289 mg/dL H 01/31/18 1720 HDL Cholesterol 50 mg/dL 01/31/18 1720 Hemoglobin A1c 9.7 % H 01/31/18 1720 LDL Cholesterol Direct 91.28 mg/dL 01/31/18 1720 LDL Cholesterol, Calc ND MG/DL 01/31/18 1720 Potassium 4.4 mmol/L 01/31/18 1720 Sodium 140 mmol/L 01/31/18 1720 TSH &T3 &Free T4 Intrp 2.000 uIU/mL 01/31/18 1720 Triglycerides 521 mg/dL H 01/31/18 1720 Troponin I < 0.01 ng/ml 01/31/18 1720 Absolute Monocytes 0.7 /CUMM H 01/31/18 1720 Hct 49.0 % 01/31/18 1720 Hgb 16.9 G/DL 01/31/18 1720 Plt Count 307 /CUMM 01/31/18 1720 WBC 8.1 /CUMM 01/31/18 1720 Serum Alcohol 226.0 MG/DL 01/31/18 1720 Urine Glucose >=1000 MG/DL H 01/31/182049 SERVICE DATE: 01/31/18 EXAM TYPE: RAD - XRY-PORTABLE CHEST XRAY EXAMINATION: XR PORTABLE CHEST CLINICAL INFORMATION: Hypoxia. COMPARISON: 12/13/2014 TECHNIQUE: Portable frontal view of the chest was obtained. FINDINGS: No significant abnormality is noted involving the heart, lungs, mediastinum, bony thorax or soft tissues. IMPRESSION: Limited extra chest. Minimal bibasilar airspace disease likely minor atelectasis. Minimal early infiltrate not excluded. Consider follow-up PA and lateral chest with better inspiratory effort. EKG 01/31/18 showed sinus rhythm @ 78, probable RVH w/secondary repol abnormality, incomplete RBBB, probably no significant change since previous tracing. Studies Pending at DC: None. Patient Instructions Contact Information Your Psychiatrist on [facility] was Macario Murrell MD * If you are experiencing an emergency related to this hospitalization, please call [phone] to contact the treating psychiatrist or the psychiatrist-on- call. * To Request a copy of your medical records, please contact the Medical Records Department at [phone]. * To request results of studies pending at the time of discharge, please call [phone]. * Continue your Medications until directed to stop by your Healthcare provider. General Medication Information Please continue to take your new medications and your continued home medications , unless otherwise indicated on your discharge medication list, or unless directed by your MD or SPECIAL EDUCATION PRESCHOOL TEACHER to stop them. Special Instructions Diet Diabetic Activity Normal Other Inst/Recommendations Stay away from alcohol! Please see PCP about labs ( lipids,sugar), EKG. - Tobacco Use Treatment Offered Post DC Medications Offered: Script Given-See Med List Post DC Tobacco Treatment Plan: [facility]x [facility] Program Appt Date: 02/12/18 Program Appt Time: 1600 - EtOH/Drug Use D/O Treatment Offered Post DC Medications Offered: Script Given-See Med List (Antabuse) Post DC EtOH/SubAbuse [place] Plan: [facility] SubAbuse/Dual IOP Program Appt Date: 02/07/18 Program Appt Time: 1130 Metabolic Screening ([x]) Not Applicable, patient not on a neuroleptic. OR () Patient on a neuroleptic(s) . Enter below results for Hemoglobin A1C, and lipid panel if obtained during the last 365 days. BMI: 29.200 Blood Pressure: 141/75 Laboratory Results From [facility] EHR (If applicable): Advance Directives Does the Patient have Medical Advance Directives No/Refused further info Does Pt have Psychiatric Advance Directives? No/Refused further info Does Patient have a Designated Surrogate Decision Maker: No Information About Psychiatric Advance Directives Provided? Refused Discharge Plan Post Hospital Treatment Plan: Return to home and work. IOP. Stay away from alcohol. Follow up with PCP Dr. Segura. Fingerstick testing 2x/day before breakfast and dinner. If on insulin sliding scale, 4x/day: before meals and at bedtime. Please use your glucometer.
[2018-02-06 12:07] VITALS: BP 141/75
--- NOTE | 2018-02-06 13:57 | CP SOUTH PROGRESS NOTE PSYCH ---
Psych (Inpt) Progress Note Progress Note Include the following elements, when applicable: Involvement in the active treatment of the patient with behavioral observations of the patient and the patient's response to the treatment. Review of the ongoing treatment process in the context of the treatment plan. Indication of how multi-disciplinary staff members are carrying out the treatment plan. Plans for future interventions and recommendations for revision of the treatment plan. Liaison with other physicians/providers. Progress Note: Case and treatment plan discussed in team meeting. Staff reports that the patient is denyning SI. Said he didn't sleep. Enthusiastic about discharge. Patient seen at 10:15 a.m. Affect is calm and euthymic. Feels very good. Reports that his stomach feels good. Tolerating Antabuse. Mood is "good, no problem." Sad 5/10. Anxiety 0/10. Denies feeling hopeless, helpless or worthless. Feels guilty for drinking. Denies active and passive SI, HI, AH, VH and PI. Sleep: variable. Appetite: good. Energy: good. Feels ready and safe for discharge. IMPRESSION: Condition improved. Okay for discharge today to home with referral to [facility].
--- NOTE | 2018-02-06 13:59 | SOCIAL WORKER PROG NOTE PSYCH ---
Lisa Bond 02/06/18 1357: Social Work Progress Note Faxed Referral(s) Referred To: [facility] Transition of Care Documents sent: Health Summary Faxed to: [facility] Fax #: [phone] Faxed by: Ana Maria Date faxed: 02/06/18 Time Faxed: [phone] Comment: Lisa Bond (Tish)-Psychiatric Community Health Worker
--- NOTE | 2018-02-06 14:50 | SOCIAL WORKER PROG NOTE PSYCH ---
Lisa Bond 02/06/18 1448: Social Work Progress Note Faxed Referral(s) Referred To: Psychiatrist Transition of Care Documents sent: Health Summary Faxed to: Dr. Jagdeep Segura Fax #: [phone] Faxed by: Ana Maria Date faxed: 02/06/18 Time Faxed: [phone] Comment: Lisa Bond (Tish)-Psychiatric Community Health Worker
--- NOTE | 2018-02-06 16:34 | DISCHARGE SUMMARY REPORT-PSYCH ---
Visit Information Visit Dates/Diagnosis' Admission Date: 02/01/18 Discharge Date: 02/06/18 Reason for Admission: Made suicidal comments. Ingested 2-4 Ambien. Had rope on floor. Patient was intoxicated. Denied intent to use rope for suicide. Psy Discharge Primary Diag: Unspecified depression Psy Discharge Secondary Diag: Alcohol use disorder Diabetes mellitus type 2 Hyperlipidemia Hx hypertension Hospital Course Significant Lab Findings: Lab ALT 33 U/L 01/31/18 1720 AST 26 U/L 01/31/18 1720 BUN 13 mg/dL 01/31/18 1720 Carbon Dioxide 24 mmol/L 01/31/18 1720 Chloride 102 mmol/L 01/31/18 1720 Cholesterol 212 MG/DL H 01/31/18 1720 Cholesterol/HDL Ratio 4.2 % 01/31/18 1720 Creatinine 0.6 mg/dL L 01/31/18 1720 Glucose 289 mg/dL H 01/31/18 1720 HDL Cholesterol 50 mg/dL 01/31/18 1720 Hemoglobin A1c 9.7 % H 01/31/18 1720 LDL Cholesterol Direct 91.28 mg/dL 01/31/18 1720 LDL Cholesterol, Calc ND MG/DL 01/31/18 1720 Potassium 4.4 mmol/L 01/31/18 1720 Sodium 140 mmol/L 01/31/18 1720 TSH &T3 &Free T4 Intrp 2.000 uIU/mL 01/31/18 1720 Triglycerides 521 mg/dL H 01/31/18 1720 Troponin I < 0.01 ng/ml 01/31/18 1720 Absolute Monocytes 0.7 /CUMM H 01/31/18 1720 Hct 49.0 % 01/31/18 1720 Hgb 16.9 G/DL 01/31/18 1720 Plt Count 307 /CUMM 01/31/18 1720 WBC 8.1 /CUMM 01/31/18 1720 Serum Alcohol 226.0 MG/DL 01/31/18 1720 Urine Glucose >=1000 MG/DL H 01/31/182049 SERVICE DATE: 01/31/18-1703 EXAM TYPE: RAD - XRY-PORTABLE CHEST XRAY EXAMINATION: XR PORTABLE CHEST CLINICAL INFORMATION: Hypoxia. COMPARISON: 12/13/2014 TECHNIQUE: Portable frontal view of the chest was obtained. FINDINGS: No significant abnormality is noted involving the heart, lungs, mediastinum, bony thorax or soft tissues. IMPRESSION: Limited extra chest. Minimal bibasilar airspace disease likely minor atelectasis. Minimal early infiltrate not excluded. Consider follow-up PA and lateral chest with better inspiratory effort. EKG 01/31/18 showed sinus rhythm @ 78, probable RVH w/secondary repol abnormality, incomplete RBBB, probably no significant change since previous tracing. Course Complications: None. Consultations: The patient was seen by Dr. Bradford for admission H&P. Per Dr. Bradford's note of 02/01/18, "Assessment: Assessment and plan: #Fashion, alcohol use disorder-psychiatry team. #Diabetes type 2-resumed metformin twice daily. Also started on sliding scale insulin, monitoring Accu-Cheks. A1c is 9.7. Patient likely needs sulfonylureas along with metformin on discharge. Medical team can follow-up. #Hypertension-not on medications at home. Currently blood pressure is acceptable. #High cholesterol and triglycerides-this is due to uncontrolled sugars. Can repeat lipids when sugars are better controlled. #Low risk for DVT, ambulation is encouraged." Allergies: Coded Allergies: NO KNOWN ALLERGIES (12/14/15) Hospital Course/TX Response: The patient was monitored on the unit for safety, alcohol withdrawal and mood disturbance. He participated in multi-modal treatments on the unit. Alcohol detox was uneventful. Patient refused offer for an antidepressant. He was started on Antabuse as an alcohol use deterrent. Mood and affect have improved. Suicidal ideation has remitted. Progress note from date of discharge, 02/06/18, "Case and treatment plan discussed in team meeting. Staff reports that the patient is denyning SI. Said he didn't sleep. Enthusiastic about discharge. Patient seen at 10:15 a.m. Affect is calm and euthymic. Feels very good. Reports that his stomach feels good. Tolerating Antabuse. Mood is "good, no problem." Sad 5/10. Anxiety 0/10. Denies feeling hopeless, helpless or worthless. Feels guilty for drinking. Denies active and passive SI, HI, AH, VH and PI. Sleep: variable. Appetite: good. Energy: good. Feels ready and safe for discharge. IMPRESSION: Condition improved. Okay for discharge today to home with referral to [facility]." Discharge HBIPS - Tobacco Use Treatment Offered Post DC Medications Offered: Script Given-See Med List Post DC Tobacco Treatment Plan: [facility]x [facility]gm Program Appt Date: 02/12/18 Program Appt Time: 1600 - EtOH/Drug Use D/O Treatment Offered Post DC Medications Offered: Script Given-See Med List (Antabuse) Post DC EtOH/SubAbuse TX Plan: [facility] SubAbuse/Dual IOP Program Appt Date: 02/07/18 Program Appt Time: 1130 Metabolic Screening - Screen if on a Neuroleptic Medication - Metabolic screening should include: - Blood Pressure, BMI, Glucose or Hgb A1c, & a - Lipid profile from within the past 365 days. Metabolic Screening ([x]) Not Applicable, patient not on a neuroleptic. OR () Patient on a neuroleptic(s) . Enter below results for Hemoglobin A1C, and lipid panel if obtained during the last 365 days. BMI: 29.200 Blood Pressure: 141/75 Laboratory Results From [facility] EHR (If applicable): Discharge Instructions General Discharge Information Multiple Neuroleptics: ([x]) Not Applicable OR Document below three failed attempts at monotherapy, or a plan to taper to monotherapy, or augmentation of Clozapine. () Discharge Diet Diabetic Discharge Activity Normal DC Disposition: Returning to home and work. Referrals Ordered Referrals Outpatient Psych - Substance 02/07/18 [address] [place], [place] [id number] [facility] [address], [place] [phone] IOP Intake: 02/07/18, at 11:30am Provider Referral 02/12/18 For Providers: [[facility]] For Groups: [Smoking Cessation Group] Smoking Cessation Group [facility] [address], [place] [phone] Group meets every other Saturday at 4pm Next group: 02/12/18 at 4pm Provider Referral For Providers: [Dr. Jagdeep Segura] Dr. Jagdeep Segura [address] [place] [address] Segura to schedule an appointment. Prescriptions Stop taking the following medications: Metformin HCl (Glucophage) 1,000 MG TABLET ORAL Zolpidem Tartrate (Ambien) 10 MG TABLET ORAL Start taking the following new medications: Nicotine (Nicorelief) 2 MG GUM 1 Gum ORAL EVERY 2 HOURS NEEDED as needed for nicotine craving Qty = 100 No Refills Comments: not taken in hospital Trazodone HCl (Trazodone HCl) 100 MG TABLET 1 Tablet ORAL AT BEDTIME Qty = 14 No Refills Comments: Last Taken:02/05/18 Time:10pm Dextran 70/Hypromellose (Artificial Tears) 1 EACH DROPERETTE 1 Drop Both Eyes EVERY 4 HOURS NEEDED as needed for eye discomfort Qty = 1 No Refills Comments: not taken in hospital Loperamide HCl (Loperamide) 2 MG CAPSULE 1 Capsule ORAL EVERY SIX HOURS NEEDED as needed for DIARRHEA Qty = 20 No Refills Comments: Last Taken:02/04/18 Time:4pm Metformin HCl (Metformin HCl) 850 MG TABLET 1 Tablet ORAL 0800,1700 Qty = 28 No Refills Comments: Last Taken:02/06/18 Time:8am Multivitamin (One Daily Multivitamin) 1 EACH TABLET 1 Tablet ORAL DAILY Qty = 14 No Refills Comments: Last Taken:02/06/18 Time:8am Disulfiram (Disulfiram) 250 MG TABLET 1 Tablet ORAL SEE INSTRUCTIONS Qty = 19 No Refills Instructions: Take 2 tabs po daily x 5 days then 1 tab po daily. Comments: Last Taken:02/06/18 Time:8am Dicyclomine HCl (Dicyclomine HCl) 20 MG TABLET 1 Tablet ORAL EVERY SIX HOURS NEEDED as needed for GI cramps Qty = 28 No Refills Comments: Last Taken:02/04/18 Time:8pm Other Inst/Recommendations Stay away from alcohol! Please see PCP about labs ( lipids,sugar), EKG. Studies Pending at Discharge None. Copies To: Imelda DICKERSON,Jagdeep Doe
--- NOTE | 2018-02-06 17:46 | SOCIAL WORKER PROG NOTE PSYCH ---
Social Work Progress Note Progress Note This race and sports book writer met with patient. He expressed feeling very happy about discharging today, felt safe to discharge and stated that his brother would provide transportation home. He denied SI/HI/Hallucinations/violent thoughts and identified a safety plan in which he would "come back to the ER." He also accepted the crisis numbers and warm lines upon discharge. Patient is agreeable to attending the IOP intake tomorrow at 11:30am (soonest appt available) and will contact Dr. Segura to schedule an appointment. This race and sports book writer attempted to do so and was informed by Dr. Segura's office that the patient would need to call himself. This race and sports book writer and patient reviewed the meeting book and this race and sports book writer explained how to identify a meeting. 10:30am The patient and this race and sports book writer spoke with his boss/friend, Brandon TongAnita ([phone]), by phone. Brandon described the patient as a good worker, however, has had a history of missing work at times due to his alcohol use. 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 He did not have any concerns about the patient discharging today. Patient and this race and sports book writer shared the discharge plan with Brandon. They planned that Brandon and the patient would talk tonight by phone at approximately 8:30pm. Regarding the rope that his daughter found, patient maintains that it is for his pool. This race and sports book writer informed Dr. Murrell of this call. 1:45pm This race and sports book writer met with the patient and his brother, Florentino Villatoro (Walter). We discussed reason for admission, which Sebastian stated that he was aware of, as well as the discharge plan (including the safety plan). Sebastian did not have any concerns for the patient's discharge today. Patient stated that he had "a few" Ambien pills left at home and Sebastian agreed to ensure that they would be disposed of today. Regarding treatment, Sebastian stated that he would be able to assist with transportation to and from treatment if needed, pending the outcome of the court case (patient anticipates possible license suspension). Patient stated that he has informed his daughter of the discharge plan with IOP through and stated that this race and sports book writer did not need to speak with her. Patient was also informed that Dr. Segura's office has asked that he contact them to schedule an appointment. This race and sports book writer informed Dr. Murrell of this call.
--- NOTE | 2018-02-06 18:08 | SOCIAL WORKER PROG NOTE PSYCH ---
Social Work Progress Note Progress Note This sba underwriter left with discharge clinical for Soraya Doe ([phone], ext. [phone]). An IOP authorization was also requested.
== END 2018-02-06 14:00 | DRG 881 ==
LOC: ERH 16:42 → ERHI 02-01 11:47 → CP SOUTH 02-01 11:47
PROVIDERS: Physician Assistant Medical
DX: F32.9 Major depressive disorder, single episode, unspecified (principal); E78.5 Hyperlipidemia, unspecified; I10 Essential (primary) hypertension; E11.9 Type 2 diabetes mellitus without complications; F10.10 Alcohol abuse, uncomplicated
CPT/HCPCS: 71045; 80307; 81003; 93005; 93010; 96372; 96374; 96375; 96376; 99291; G0480; J1200; J1630; J3490